=== PATIENT | male | born 1985 | race Caucasian/White ===

== ENCOUNTER 2017-03-16 20:23 | Emergency (ER) | payer OTHER ==
[~2017-03-16] VITALS: Ht 177.8 cm; Wt 87.6 kg
[~2017-03-16 20:23] MED LIST: ALBU1AER9 INH; MIRT30TA2 PO; OMEP40CA PO
[2017-03-16 20:25] VITALS: TEMP 36.7; Ht 177.8 cm; Wt 87.6 kg
--- NOTE | 2017-03-16 21:30 | EMERGENCY ROOM VISIT NOTE ---
History Report prepared by Deanna: John Perez Under the Supervision of: Dr. Luis Munoz M.D. First contact with patient: 21:24 Chief Complaint: URINARY SYMPTOMS Stated Complaint: PEEING BLOOD Nursing Triage Summary: urinating blood. History of Present Illness The patient is a 32 year old male who presents to the Emergency Room with complaints of intermittent hematuria that started last night. The patient reports that he noticed some blood in his urine last night, but denies noticing any previous symptoms. He reports that whenever he urinates, he experiences pain. The patient denies any abdominal pain. Source of History: patient Onset: last night Position: other (global) Quality: other (blood in urine) Timing: intermittent Associated Symptoms: No abdominal pain Review of Systems All systems have been listed, reviewed, and are negative other than those previously mentioned. Please see Additional Medical History Sheet. Past Medical & Surgical Medical Problems: (1) Asthma (2) Back pain (3) Back pain (4) Bipolar disorder (5) Gastroesophageal reflux disease (6) [id number] (7) [id number] (8) learning disorder (9) Low back pain (10) Lumbar disc disease Surgical Problems: (1) Hernia repair Family History No significant family history Social History Smoking Status: Never Smoker Alcohol Use: none Drug Use: none Marital Status: in relationship Housing Status: lives with family Occupation Status: unemployed Current/Historical Medications Scheduled Escitalopram Oxalate (Escitalopram Oxalate), 20 MG PO QAM Mirtazapine (Remeron), 30 MG PO HS Montelukast Sod (Montelukast Sodium), 10 MG PO QAM Omeprazole (Prilosec), 40 MG PO QAM Scheduled PRN Acetaminophen (Tylenol), 500 MG PO UD PRN for Pain or Fever Albuterol Sulfate (Proair Respiclick), 2 PUFFS INH QID PRN for SOB/Wheezing Allergies Coded Allergies: No Known Allergies (Verified , 02/03/16) Physical Exam Vital Signs Date Time Temp Pulse Resp B/P (MAP) Pulse Ox O2 Delivery O2 Flow Rate FiO2 03/16/17 23:23 59 18 112/86 95 03/16/17 22:35 58 16 132/85 97 Room Air 03/16/17 20:25 36.7 73 18 144/92 96 Room Air Physical Exam GENERAL: Patient awake, alert, oriented x 3. Patient follows commands. Patient does not appear toxic. Patient is adequately hydrated and well- nourished. Patient is in no distress. SKIN: No erythema, pallor, cyanosis or rash HEENT: Normal head, pupils equal, reactive to light and accommodation. LUNGS: Clear to auscultation. No wheezes, no rales, no rhonchi. HEART: No murmurs. No gallops. No rubs ABDOMEN: No masses, no rebound, no hepatomegaly or splenomegaly. : No signs of trauma. Circumcised penis. No swelling. EXTREMITIES: No signs of trauma or infection NEUROLOGIC: Cranial nerves II-XII within normal limits. No gross motor sensory function deficits. Medical Decision & Procedures Laboratory Results 03/16/17 21:50 03/16/17 21:50 Test 03/16/17 21:50 Red Blood Count 4.79 M/uL (4.7-6.1) Mean Corpuscular Volume 84.3 fL (80-100) Mean Corpuscular Hemoglobin 29.6 pg (25-34) Mean Corpuscular Hemoglobin Concent 35.1 g/dl (32-36) RDW Standard Deviation 38.0 fL (36.4-46.3) RDW Coefficient of Variation 12.5 % (11.5-14.5) Mean Platelet Volume 8.7 fL (7.4-10.4) Urine Color YELLOW Urine Appearance CLEAR (CLEAR) Urine pH 7.0 (4.5-7.5) Urine Specific [place] 1.025 (1.000-1.030) Urine Protein NEG (NEG) Urine Glucose (UA) NEG (NEG) Urine Ketones NEG (NEG) Urine Occult Blood NEG (NEG) Urine Nitrite NEG (NEG) Urine Bilirubin NEG (NEG) Urine Urobilinogen NEG (NEG) Urine Leukocyte Esterase NEG (NEG) Anion Gap 5.0 mmol/L (3-11) Est Creatinine Clear Calc Drug Dose 100.5 ml/min Estimated GFR () 103.1 Estimated GFR (Non- 89.0 BUN/Creatinine Ratio 13.0 (10-20) Calcium Level 8.8 mg/dl (8.5-10.1) Laboratory results as stated above per my review. ED Course 2123: Past medical records reviewed. The patient was evaluated in room A11A. A complete history and physical examination was performed. 2258: Upon reevaluation, the patient is resting comfortably. I discussed today' s findings with the patient. He verbalized agreement of the treatment plan. The patient was discharged home. Medical Decision Nurses notes reviewed. Medical history sheet reviewed. Differential diagnosis includes but is not limited to: hematuria, UTI, kidney stone, urethral trauma, urethritis. The patient is asymptomatic but is concerned about the blood. Blood work and urinalysis were obtained. Please see above. The patient has no blood, red or white cells in his urine. CBC and electrolytes were also within normal limits. The patient is a follow-up with his family physician. He does not require any treatment at this time. Medication Reconcilliation Current Medication List: was personally reviewed by me Blood Pressure Screening Patient's blood pressure: Elevated blood pressure Blood pressure disposition: Elevated BP felt to be situational Impression Primary Impression: Symptoms involving urinary system Scribe Attestation The scribe's documentation has been prepared under my direction and personally reviewed by me in its entirety. I confirm that the note above accurately reflects all work, treatment, procedures, and medical decision making performed by me. Departure Information Dispostion Home / Self-Care Referrals Benjy Greene M.D. (PCP) Patient Instructions My [facility] Additional Instructions Follow-up with your family physician. Continue all of your current medications as prescribed.
[2017-03-16] MEDS ORDERED: SNG10 PO (22:01)
[2017-03-16] MEDS ORDERED: ALBU18002 INH (22:01)
[2017-03-16] MEDS ORDERED: MIRT30TA3 PO (22:01)
[2017-03-16] MEDS ORDERED: OMEP40CA41 PO (22:01)
[2017-03-16] MEDS ORDERED: LXP/20 PO (22:01)
[2017-03-16] MEDS ORDERED: ACET-1256 PO (22:01)
[2017-03-16 22:02] LABS: HEMATOCRIT 40.4 % (42-52); MEAN CELL VOLUME 84.3 fL (80-100); MEAN CORPUSCULAR HEMOGLOBIN 29.6 pg (25-34); MEAN CORPUSCULAR HGB CONC 35.1 g/dl (32-36); MEAN PLATELET VOLUME 8.7 fL (7.4-10.4); PLATELET COUNT 205 K/uL (130-400); RED BLOOD COUNT 4.79 M/uL (4.7-6.1); WHITE BLOOD COUNT 7.12 K/uL (4.8-10.8)
[2017-03-16 22:11] LABS: URINE APPEARANCE CLEAR (CLEAR); URINE BILIRUBIN NEG (NEG); URINE COLOR YELLOW; URINE NITRITE NEG (NEG); URINE SPECIFIC GRAVITY 1.025 (1.000-1.030); UROBILINOGEN NEG (NEG); ZZUR CULT IF INDIC CLEAN CATCH NO
[2017-03-16 22:14] LABS: MANUAL MICROSCOPIC REQUIRED? NO; REVIEW REQ? NO
[2017-03-16 22:26] LABS: CALCIUM 8.8 mg/dl (8.5-10.1); CREATININE 1.1 mg/dl (0.60-1.40); POTASSIUM 4.1 mmol/L (3.5-5.1)
[2017-03-16 23:23] VITALS: BP 112/86; PULSE 59; O2SAT 95
== END 2017-03-16 23:52 | disposition home or self-care (01) ==
LOC: C.EDB 20:25 → C.EDA 23:52
DX: R31.9 Hematuria, unspecified (principal); R30.0 Dysuria; J45.909 Unspecified asthma, uncomplicated; F31.9 Bipolar disorder, unspecified; K21.9 Gastro-esophageal reflux disease without esophagitis; M51.86 Other intervertebral disc disorders, lumbar region; F81.9 Developmental disorder of scholastic skills, unspecified

== ENCOUNTER 2017-07-17 18:38 | Emergency (ER) | payer OTHER ==
[~2017-07-17] VITALS: Ht 177.8 cm; Wt 96.0 kg
[2017-07-17 18:50] VITALS: BP 140/84; PULSE 86; TEMP 37; O2SAT 93; Ht 177.8 cm; Wt 96.0 kg
[2017-07-17] MEDS ORDERED: PRED20TA2 PO (19:37)
[2017-07-17] MEDS ORDERED: SNG10 PO (22:01)
[2017-07-17] MEDS ORDERED: LXP/20 PO (22:01)
[2017-07-17] MEDS ORDERED: MIRT30TA3 PO (22:01)
[2017-07-17] MEDS ORDERED: ACET-1256 PO (22:01)
[2017-07-17] MEDS ORDERED: ALBU18002 INH (22:01)
[2017-07-17] MEDS ORDERED: OMEP40CA41 PO (22:01)
--- NOTE | 2017-07-17 22:40 | EMERGENCY ROOM VISIT NOTE ---
ED Visit Note First contact with patient: 19:02 Chief Complaint: Sore throat. History of Present Illness: Mr. Escobedo is a 32-year-old white male who ambulates into the ED accompanied by male friend complaining of throat pain. Patient reports last evening he noted he had a mild sore throat with no associated symptoms. He reports he went to bed and when he awoke this morning he had the sensation of something stuck in the back of his throat. Since that time this discomfort has been constant. He rates his discomfort 4/10. The discomfort worsens with swallowing. He has not taken any medications for his symptoms. He has not identified any alleviating factors related to the symptoms. Associated with his symptoms he reports she has difficulty swallowing. He denies headache, dizziness, lightheadedness, ear pain, upper respiratory tract symptoms, sinus pain/drainage, nasal pain/drainage, fevers, chills, sweats, voice changes, drooling, painful talking, neck pain/stiffness, cough, wheezing, shortness of breath, decreased appetite, nausea/vomiting. Additional history patient does report that he snores a lot and he has never had similar symptoms. Review of Systems: As noted above in history of present illness. 8 body systems were reviewed and found to be negative as noted above. Past Medical History: Asthma, chronic back pain, bipolar disorder, gastric reflux, unspecified learning disorder, status post hernia repair. Current Medications: Medications Dose Route/Sig Max Daily Dose Days Date Category Dose Instructions Tylenol (Acetaminophen) 500 Mg Tab 500 Mg PO UD PRN 03/16/17 Reported TAKE PER PACKAGE DIRECTIONS Proair Respiclick (Albuterol Sulfate) 108 Mcg/Act Aer 2 Puffs INH QID PRN 03/16/17 Reported Prilosec (Omeprazole) 40 Mg Cap 40 Mg PO QAM 03/16/17 Reported TAKE THIS MEDICATION ONCE DAILY ONE HOUR BEFORE FIRST MEAL OF THE DAY Escitalopram Oxalate 20 Mg Tab 20 Mg PO QAM 03/16/17 Reported Remeron (Mirtazapine) 30 Mg Tab 30 Mg PO HS 03/16/17 Reported Montelukast Sodium (Montelukast Sod) 10 Mg Tab 10 Mg PO QAM 03/16/17 Reported Allergies to Medications: Patient denies. Social History: Patient is currently employed; he feels safe in his home environment; he denies tobacco and alcohol use. Physical Examination: Vital Signs: Date Time Temp Pulse Resp B/P (MAP) Pulse Ox O2 Delivery O2 Flow Rate FiO2 07/17/17 18:50 37.0 86 18 140/84 93 Room Air GENERAL: 32-year-old male in mild distress due to symptoms, nontoxic-appearing, afebrile and hemodynamically stable. NEUROLOGICAL: Awake, alert and oriented to person, place and time. Answering questions appropriately and following commands. Normal gait. Good hand eye coordination. SKIN: Warm, dry and pink. No soft tissue eruptions or trauma noted. HEENT: Atraumatic and normocephalic. No tenderness or erythema over the frontal or maxillary sinuses. Tympanic membranes are not erythematous or edematous. PERRLA. Sclera white and conjunctiva pink without drainage. No drainage from naris without audible congestion. Airway is patent. Oral cavity moist and pink. Uvula is moderately erythematous and edematous. Posterior pharyngeal area is minimally erythematous but not edematous edematous. No tonsillar hypertrophy or exudates. Speech normal. No lymphadenopathy. Trachea midline. No jugular venous distention. No laryngeal tenderness. No auditory or auscultatory stridor. BACK: No tenderness over the bony spine. No nuchal rigidity or meningismus. ED Course: Patient is assessed as noted above. Patient's medication list was reviewed. Rapid Strep Screen: Negative. Culture pending. Patient was given 60 mg of prednisone by mouth for inflammation of the uvula. Patient was educated about today's findings and instructed on his treatment plan ; he verbalized understanding and agreement with this plan. Clinical Impression: Acute uvulitis. Disposition: Patient discharged to home in stable condition accompanied by a male friend; prior to departure he was reassessed and subjectively reported he was feeling the same. Plan: Patient was prescribed prednisone 60 mg once a day for 4 more days. Patient was encouraged to use or alternate ibuprofen and acetaminophen as needed for pain and/or fevers. Patient was encouraged to use a liquid and mechanical soft diet until resolution of throat discomfort. Patient was encouraged to stay well-hydrated with increased clear fluids. Patient is encouraged to follow-up with PCP for recheck if no better in 2-3 days. Patient was encouraged to return the ED for worsening pain, uncontrolled fevers , inability to swallow or any new/concerning symptoms.
== END 2017-07-17 19:54 | disposition home or self-care (01) ==
LOC: C.EDB 18:41 → C.EDD 19:54
DX: K12.2 Cellulitis and abscess of mouth (principal); J45.909 Unspecified asthma, uncomplicated; F31.9 Bipolar disorder, unspecified; K21.9 Gastro-esophageal reflux disease without esophagitis

== ENCOUNTER 2017-10-28 04:36 | Emergency (ER) | payer OTHER ==
[~2017-10-28] VITALS: Ht 177.8 cm; Wt 90.7 kg
[~2017-10-28 04:36] MED LIST changes: +ACET-1256 PO; +ALBU18002 INH; -ALBU1AER9 INH; +LXP/20 PO; -MIRT30TA2 PO; +MIRT30TA3 PO; -OMEP40CA PO; +OMEP40CA41 PO; +PRED20TA2 PO; +SNG10 PO
[2017-10-28 04:38] VITALS: TEMP 36.5; Ht 177.8 cm; Wt 90.7 kg
[2017-10-28] MEDS ORDERED: ALBUT/IPRATROP 3MG/0.5MG NEB 3 ML VIAL INH ONE (04:45)
[2017-10-28] MEDS ORDERED: BUSP-8 PO (05:20)
[2017-10-28] MEDS ORDERED: PRED20TA2 PO (05:43)
[2017-10-28 05:49] VITALS: BP 129/84; PULSE 77; O2SAT 99
--- NOTE | 2017-10-28 06:39 | DIAGNOSTIC IMAGING REPORT ---
CHEST 2 VIEWS ROUTINE CLINICAL HISTORY: SOB. Asthma hx COMPARISON STUDY: Chest radiograph November 17, 2015. FINDINGS: Lung volumes are normal. Lungs are clear. No pneumothorax or pleural effusion is noted. There is no evidence for pneumomediastinum. Cardiac size is normal. Mediastinal contours are normal. Appearance of the chest is unchanged. IMPRESSION: No acute cardiopulmonary findings. Electronically signed by: Ralf Jackson M.D. 10/28/2017 6:38 AM Dictated Date/Time: 10/28/2017 6:37 AM
--- NOTE | 2017-10-28 07:55 | EMERGENCY ROOM VISIT NOTE ---
History First contact with patient: 04:38 Chief Complaint: SHORTNESS OF BREATH Stated Complaint: SHORT OF BREATH Nursing Triage Summary: Pt c/o increased shortness of breath and chest tightness from allergies, medications and inhalers taken without relief at home. History of Present Illness The patient is a 32 year old male who presents to the Emergency Room with complaints of shortness of breath and chest tightness that began worsening at home tonight. The patient has a history of asthma and this is been ongoing for the past few days. His inhaler has been improving his symptoms at home, however tonight he did not get any relief. The patient states that his allergies and asthma are always worse this time of year, and he has had symptoms like this in the past. He is not having distinct pain, fevers, or chills. He contacted EMS and was given a DuoNeb and 125 mg Solu-Medrol prehospital. He states that he feels remarkably better after this. He rates his current discomfort as 0/10, however before treatment it was a 9/10. Review of Systems More than 10 systems were reviewed and otherwise negative with the exception of history of present illness. Past Medical/Surgical History Medical Problems: (1) Asthma (2) Back pain (3) Back pain (4) Bipolar disorder (5) Gastroesophageal reflux disease (6) [id number] (7) [id number] (8) learning disorder (9) Low back pain (10) Lumbar disc disease Surgical Problems: (1) Hernia repair Family History No significant family history Social History Smoking Status: Former Smoker Alcohol Use: none Drug Use: none Marital Status: in relationship Housing Status: lives with family Occupation Status: unemployed Current/Historical Medications Scheduled Buspirone Hcl (Buspirone Hcl), 15 MG PO DIRECTED Escitalopram Oxalate (Escitalopram Oxalate), 20 MG PO QAM Mirtazapine (Remeron), 30 MG PO HS Montelukast Sod (Montelukast Sodium), 10 MG PO QAM Omeprazole (Prilosec), 40 MG PO QAM Prednisone (Prednisone Tab), 2 TAB PO DAILY Scheduled PRN Acetaminophen (Tylenol), 500 MG PO UD PRN for Pain or Fever Albuterol Sulfate (Proair Respiclick), 2 PUFFS INH QID PRN for SOB/Wheezing Physical Exam Vital Signs Date Time Temp Pulse Resp B/P (MAP) Pulse Ox O2 Delivery O2 Flow Rate FiO2 10/28/17 05:49 77 18 129/84 99 10/28/17 04:41 78 10/28/17 04:38 36.5 77 18 127/92 98 Room Air Physical Exam VITALS: Vitals are noted on the nurse's note and reviewed by myself. Vital signs stable. GENERAL: Well-developed, well-nourished, white male, who is in no acute distress and resting comfortably. Patient is cooperative with the examination. HEAD: Normocephalic atraumatic. EARS: External ear normal. External auditory canals clear, tympanic membranes pearly arana without erythema or effusion bilaterally. EYES: Pupils equal round and reactive to light and accommodation. Conjunctivae without injection, sclerae without icterus. Extraocular movements intact. NOSE: Patent, turbinates without inflammation or discharge. MOUTH: Mucous membranes moist. Tonsils are not enlarged. Pharynx without erythema, blood, or exudate. Uvula midline. Airway patent. NECK: Supple without nuchal rigidity. No lymphadenopathy. No thyromegaly. Cervical spine is nontender. HEART: Regular rate and rhythm without murmurs gallops or rubs. LUNGS: Clear to auscultation bilaterally without wheezes, rales or rhonchi. No retractions or accessory muscle use. Medical Decision & Procedures ER Provider Diagnostic Interpretation: CHEST 2 VIEWS ROUTINE CLINICAL HISTORY: SOB. Asthma hx COMPARISON STUDY: Chest radiograph November 17, 2015. FINDINGS: Lung volumes are normal. Lungs are clear. No pneumothorax or pleural effusion is noted. There is no evidence for pneumomediastinum. Cardiac size is normal. Mediastinal contours are normal. Appearance of the chest is unchanged. IMPRESSION: No acute cardiopulmonary findings. Medications Administered Medications (Trade) Dose Ordered Sig/John Route Start Time Stop Time Status Last Admin Dose Admin Albuterol/ Ipratropium (Duoneb) 3 ml NOW ONCE INH 10/28/17 04:45 10/28/17 04:46 DC 10/28/17 04:51 3 ML ED Course Physical exam and history were performed. Nursing notes, EMR, and Medication List were personally reviewed. Patient appears to have a history of asthma that was exacerbated earlier. The patient was given a DuoNeb and Solu-Medrol prehospital. On examination he states that he feels much better. I did perform a chest x-ray which does not show acute findings per my and radiology interpretation. The patient was given a second DuoNeb here in the department, and repeat exam continued to be benign. Patient appears well for discharge home. He does have inhalers that he may continue. I will give him a short course of prednisone. He is to follow with his primary care physician for further management. He was otherwise invited back to the ER with any new, worsening, or concerning symptoms. The chart was completed utilizing [email or web address] Speech Voice Recognition Software. Grammatical errors, random word insertions, pronoun errors, and incomplete sentences are an occasional consequence of this system due to software limitations, ambient noise, and hardware issues. Any formal questions or concerns about the content, text, or information contained within the body of this dictation should be directly addressed to the provider for clarification. . Medical Decision Differential diagnosis: Etiologies such as infections, reactive airway disease, pneumonia, pneumothorax , COPD, CHF, cardiac ischemia, pulmonary embolism, musculoskeletal, gastrointestinal, as well as others were entertained. Impression Primary Impression: Asthma exacerbation Departure Information Dispostion Home / Self-Care Condition GOOD Prescriptions Prednisone (Prednisone Tab) 20 Mg Tab 2 TAB PO DAILY for 5 Days, #10 TAB Prov: Bam Torres PA-C 10/28/17 Referrals Benjy Greene M.D. (PCP) Forms HOME CARE DOCUMENTATION FORM, IMPORTANT VISIT INFORMATION Patient Instructions My [facility] Additional Instructions You were seen and evaluated today on an emergency basis only. This is not a substitute for, or an effort to provide, complete comprehensive medical care. It is not possible to recognize and treat all injuries or illnesses in a single emergency department visit. For this reason it is recommended that you followup with your primary care physician in the next 2-3 days for recheck. Continue your inhaler at home. Take prednisone 40 mg daily for the next 5 days. You are welcome to return to the emergency department anytime with new, worsening, or concerning symptoms.
== END 2017-10-28 05:50 | disposition home or self-care (01) ==
LOC: EDBD 04:36 → C.EDA 04:37
DX: J45.901 Unspecified asthma with (acute) exacerbation (principal); F31.9 Bipolar disorder, unspecified; K21.9 Gastro-esophageal reflux disease without esophagitis; F81.9 Developmental disorder of scholastic skills, unspecified; Z87.891 Personal history of nicotine dependence; Z79.899 Other long term (current) drug therapy

== ENCOUNTER 2018-12-24 18:50 | Inpatient (IN) ==
[2018-12-24 19:28] LABS: Basophils # (auto) 0.03 K/uL (0-0.2); Basophils % (auto) 0.3 %; Eosinophils # (auto) 0.02 K/uL (0-0.5); Eosinophils % (auto) 0.2 %; Hematocrit (blood only) 40.3 % (42-52); Hemoglobin 14.2 g/dL (14.0-18.0); Immature Granulocytes # (auto) 0.03 K/uL (0.00-0.02); Immature Granulocytes % (auto) 0.3 %; Lymphocytes # (auto) 1.03 K/uL (1.2-3.4); Lymphocytes % (auto) 8.6 %; Mean Corpuscular Hgb Conc 35.2 g/dL (32-36); Mean Corpuscular Volume 82.2 fL (80-100); Mean Platelet Volume 8.8 fL (7.4-10.4); Monocytes # (auto) 0.49 K/uL (0.11-0.59); Monocytes % (auto) 4.1 %; Neutrophils # (auto) 10.32 K/uL (1.4-6.5); Neutrophils % (auto) 86.5 %; Platelet Count 203 K/uL (130-400); RDW Coefficient of Variation 12.3 % (11.5-14.5); RDW Standard Deviation 36.6 fL (36.4-46.3); White Blood Count 11.92 K/uL (4.8-10.8)
[2018-12-24 19:50] LABS: Acetaminophen < 2 ug/ml (10-30); Albumin Level 4.2 gm/dl (3.4-5.0); BUN Creatinine Ratio 12.6 (10-20); Calcium 9.4 mg/dl (8.5-10.1); Creatinine Clr Calc Pharmacy 82.2 ml/min; Est GFR (African American) 93.1; Est GFR (Non-African American) 80.3; Potassium 3.6 mmol/L (3.5-5.1)
[2018-12-24 19:55] LABS: Salicylate < 1.7 mg/dl (2.8-20)
[2018-12-24 20:00] LABS: Albumin Globulin Ratio 1.2 (0.9-2); Bilirubin,Total 0.6 mg/dl (0.2-1); Globulin 3.5 gm/dl (2.5-4.0); Total Protein 7.7 gm/dl (6.4-8.2)
[2018-12-24 20:18] LABS: Appearance Urine Cloudy (Clear); Bacteria Urine Automated Negative (Negative); Bilirubin Urine Negative (Negative); Blood Urine Negative (Negative); Color Urine Dark Yellow; Epithelial Cell Urine Auto >30 /lpf (0-5); Glucose Urine UA Negative (Negative); Ketones Urine 1+ (Negative); Leukocyte Esterase Urine Negative (Negative); Nitrite Urine Negative (Negative); RBC Urine Automated 0-4 /hpf (0-4); Specific Gravity Urine 1.033 (1.000-1.030); Urobilinogen Urine Negative (Negative); pH Urine 8.5 (4.5-7.5)
[2018-12-24 20:34] LABS: Amphetamines+Metham, Urine Neg (Neg); Barbiturates, Urine Neg (Neg); Benzodiazepine, Urine Neg (Neg); Cocaine, Urine Neg (Neg); MDMA (Ecstacy), Urine Neg (Neg); Methadone, Urine Neg (Neg); Opiate, Urine Neg (Neg); Phencyclidine, Urine Neg (Neg)
[2018-12-24 20:35] LABS: Protein Urine 1+ (Negative)
[2018-12-24 20:45] LABS: Mucus Urine Present (None Prsent); Renal Epithelial Cells Urine 0-5 /lpf (0-5)
--- NOTE | 2018-12-24 21:03 | Emergency Department Note ---
Entered by Paulette Vaughn acting as a scribe for Clark David MD History of Present Illness General Chief complaint: Mental Health Evaluation Stated complaint: SUICIDAL THOUGHTS Time Seen by Provider: 12/24/18 19:02 Source: patient History of Present Illness Provider complaint: Mental Health Evaluation Onset (ago): week(s) 2 Location: head (mental health evaluation ) Pain Consistency: + constant Maximum Pain Intensity: 0 Quality: + constant Associated symptoms: + loss of appetite and + other (Positive: Depression, sa dness, suicidal ideation,normal bowel movements. Negative: abdominal pain) The patient is a 33 white male w/ PMHx chest pain, back pain, mood disorder, depression, and suicidal ideation who presents to the ED for a mental health evaluation. The patient reports he has been having thoughts about killing himself for 2 weeks. He notes he is still on his medications for his bipolar disorder. The patient reports he thinks his medications stopped working. He states there are no recent changes to his medications. The patient notes he is feeling depressed and sad along with loss of appetite. He reports he has been sleeping well. The patient states he does not have thoughts about hurting other people. He denies seeing or hearing things. The patient repots he tried to hurt himself in 2005 where he took a knife and cut himself. He notes he was admitted as an inpatient in 2011 for medical breakdown. The patient states he had a plan to hurt himself this morning where he was going to take a knife and cut his wrist. He states he does not have guns or knives at home. He reports he drinks alcohol. The patient states he has normal bowel movement. The patient denies abdominal pain, tobacco use, or drug use. Home Medications Home Medications Medication Instructions Recorded Confirmed Type acetaminophen [Tylenol Extra 1,000 mg PO Q6H PRN 12/24/18 12/24/18 History Strength] albuterol sulfate [ProAir HFA] 2 puff INHALATION QID 12/24/18 12/24/18 History buspirone 15 mg PO BID 12/24/18 12/24/18 History loratadine [Claritin] 10 mg PO DAILY 12/24/18 12/24/18 History mirtazapine [Remeron] 30 mg PO HS 12/24/18 12/24/18 History montelukast [Singulair] 10 mg PO DAILY 12/24/18 12/24/18 History omeprazole 40 mg PO DAILY 12/24/18 12/24/18 History sertraline [Zoloft] 200 mg PO DAILY 12/24/18 12/24/18 History Allergies Allergy/AdvReac Type Severity Reaction Status Date / Time No Known Allergies Allergy Unknown Verified 12/24/18 21:35 Past Med/Surg History Medical History [id number] (Resolved) [id number] (Resolved) Depression (Acute) Suicidal ideation (Acute) GERD (gastroesophageal reflux disease) (Chronic) Sciatica (Chronic) Abrasion of left hand (Resolved) Acute bronchitis (Resolved) Acute exacerbation of chronic low back pain (Resolved) Asthma exacerbation (Resolved) Back pain (Resolved) Back pain (Resolved) Back pain (Resolved) Back pain (Resolved) Back strain (Resolved) Chest pain (Resolved) Chest pain (Resolved) Chest wall pain (Resolved) Closed head injury (Resolved) Mood disorder (Resolved) Nausea (Resolved) Vomiting (Resolved) Asthma Family History Family/Other Bipolar disorder Mother Depression sees therapist Other No known problems Social History Preferred Language: Swazi Communication Ability: Effective Ice Puller Required: No Beliefs That Will Affect Care: None marital status: Single Current Living Situation: Parent current occupational status: employed Feels Safe at Home: Yes Smoking Status: Never smoker Hx Alcohol Use: Yes (few times a year, mild usage ) Alcohol Intake Frequency: Holidays/Special Occasions Hx Substance Use: No Physical Exam Vital Signs Vital Signs - 24 hr 12/24/18 18:56 12/24/18 20:32 12/24/18 22:18 Temperature 36.4 C L Temperature Source Oral Sepsis Recent Fever Within 48 Hours No Sepsis Action Taken by Nursing No Action Required Pulse Rate 78 52 L Pulse Rate [Apical] 62 Pulse Rhythm Regular Pulse Strength Normal Respiratory Rate 20 16 16 Respiratory Effort / Characteristics Non-Labored Spontaneous Non-Labored Spontaneous Respiratory Depth Normal Normal Respiratory Pattern Regular Blood Pressure 142/98 H 133/83 Blood Pressure [Left Arm] 120/83 Blood Pressure Mean 112 Blood Pressure Mean [Left Arm] 95 Blood Pressure Position Sitting Pulse Oximetry 97 97 99 Oxygen Delivery Method Room Air Room Air Room Air GENERAL: Well appearing, well nourished, NAD, non-toxic. EYE EXAM: Normal conjunctiva. PERRL, no anisocoria and EOM's grossly intact w/o pain. OROPHARYNX: Moist mucous membranes. Grossly normal dentition. NECK: Supple, no nuchal rigidity, no adenopathy, non-tender. No signs of meningismus. LUNGS: Clear to auscultation. Normal chest wall mechanics. HEART: NSR, no MRG. ABDOMEN: Abdomen soft, non-tender, normo-active bowel sounds, no masses, no rebound or guarding. BACK: No CVA TTP. SKIN: No rashes and no bruising. UPPER EXTREMITIES: Upper extremities are grossly normal. LOWER EXTREMITIES: No pitting edema. No calf pain. NEURO EXAM: A&O x3, cranial nerves II-XII grossly intact, normal speech, moves all 4 extremities on command w/o issue. PSYCH: Tearful, depressed mood, positive SI, no HI or AVH Course 1922: The patient was evaluated in room B6. A complete history and physical exam was performed. 2123: The patient is signed out to Dr. Drake at change of shift. See her note for more information. Administered Medications Albuterol (Ventolin Hfa) 2 puffs INH QID PRN PRN Reason: Shortness Of Breath Stop: 01/23/19 22:34 Last Admin: 12/25/18 10:19 Dose: 2 puffs Documented by: [id number] Buspirone HCl (Buspar) 22.5 mg PO [id number] [facility] Stop: 01/24/19 16:59 Last Admin: 12/25/18 17:14 Dose: 22.5 mg Documented by: [id number] Hydroxyzine HCl (Vistaril) 25 mg PO Q4H PRN PRN Reason: Anxiety Stop: 01/23/19 22:24 Last Admin: 12/25/18 12:52 Dose: 25 mg Documented by: [id number] Loratadine (Claritin) 10 mg PO QAM [facility] Stop: 01/24/19 08:59 Last Admin: 12/25/18 10:16 Dose: 10 mg Documented by: [id number] Pantoprazole Sodium (Protonix) 40 mg PO DAILY [facility] Stop: 01/24/19 09:29 Last Admin: 12/25/18 10:16 Dose: 40 mg Documented by: [id number] Sertraline HCl (Zoloft) 200 mg PO QAM [facility] Stop: 01/24/19 08:59 Last Admin: 12/25/18 10:16 Dose: 200 mg Documented by: [id number] Discontinued Medications Buspirone HCl (Buspar) 15 mg PO BID [facility] Stop: 01/24/19 08:59 Last Admin: 12/25/18 10:16 Dose: 15 mg Documented by: [id number] Medical Decision Making Differential Diagnosis The patient is a 33 white male w/ PMHx chest pain, back pain, mood disorder, depression, and suicidal ideation who presents to the ED for a mental health evaluation. Differential diagnosis: Etiologies such as psychiatric disorder, infection, hypoglycemia, electrolyte abnormalities, cardiac sources, intracerebral event, toxicological process, neurologic disorder, as well as others were entertained. Medical Records Attestation: I reviewed the patient's medical records. Home Medications Current Medication List: was personally reviewed by me Laboratory Data Attestation: I reviewed the patient's lab results. Result diagrams: 12/24/18 19:11 12/24/18 19:11 Lab Results 12/24/18 12/24/18 12/24/18 Range/Units 19:11 19:11 19:11 WBC 11.92 H (4.8-10.8) K/uL RBC 4.90 (4.7-6.1) M/uL Hgb 14.2 (14.0-18.0) g/dL Hct 40.3 L (42-52) % MCV 82.2 (80-100) fL MCH 29.0 (25-34) pg MCHC 35.2 (32-36) g/dL RDW Std Deviation 36.6 (36.4-46.3) fL RDW Coeff of Gi 12.3 (11.5-14.5) % Plt Count 203 (130-400) K/uL MPV 8.8 (7.4-10.4) fL Immature Gran % (Auto) 0.3 % Neut % (Auto) 86.5 % Lymph % (Auto) 8.6 % [place] % (Auto) 4.1 % Eos % (Auto) 0.2 % Baso % (Auto) 0.3 % Immature Gran # (Auto) 0.03 H (0.00-0.02) K/uL Neut # (Auto) 10.32 H (1.4-6.5) K/uL Lymph # (Auto) 1.03 L (1.2-3.4) K/uL [place] # (Auto) 0.49 (0.11-0.59) K/uL Eos # (Auto) 0.02 (0-0.5) K/uL Baso # (Auto) 0.03 (0-0.2) K/uL Sodium 139 (136-145) mmol/L Potassium 3.6 (3.5-5.1) mmol/L Chloride 107 (98-107) mmol/L Carbon Dioxide 25 (21-32) mmol/L Anion Gap 7.0 (3-11) BUN 15 (7-18) mg/dl Creatinine 1.19 (0.6-1.4) mg/dl Est Cr Clr Drug Dosing 82.2 ml/min Est GFR ( Amer) 93.1 Est GFR (Non-Af Amer) 80.3 BUN/Creatinine Ratio 12.6 (10-20) Glucose 97 (70-99) mg/dl Calcium 9.4 (8.5-10.1) mg/dl Total Bilirubin 0.6 (0.2-1) mg/dl AST 15 (15-37) U/L ALT 28 (12-78) U/L Alkaline Phosphatase 72 (45-117) U/L Total Protein 7.7 (6.4-8.2) gm/dl Albumin 4.2 (3.4-5.0) gm/dl Globulin 3.5 (2.5-4.0) gm/dl Albumin/Globulin Ratio 1.2 (0.9-2) TSH 1.150 (0.300-4.500) uIu/ml Urine Color Urine Appearance (Clear) Urine pH (4.5-7.5) Ur Specific [place] (1.000-1.030) Urine Protein (Negative) Urine Glucose (UA) (Negative) Urine Ketones (Negative) Urine Blood (Negative) Urine Nitrite (Negative) Urine Bilirubin (Negative) Urine Urobilinogen (Negative) Ur Leukocyte Esterase (Negative) Urine WBC (Auto) (0-5) /hpf Urine RBC (Auto) (0-4) /hpf U Hyaline Cast (Auto) (0-5) /lpf U Epithel Cells (Auto) (0-5) /lpf Urine Bacteria (Auto) (Negative) Ur Renal Epithelial Cell (0-5) /lpf Urine Mucus (None Prsent) Salicylates < 1.7 L (2.8-20) mg/dl Urine Opiates Screen (Neg) Ur Methadone, Qual (Neg) Acetaminophen < 2 L (10-30) ug/ml Urine Barbiturates (Neg) Ur Phencyclidine (PCP) (Neg) U Amphetamin/Meth Scrn (Neg) MDMA (Ecstasy) Screen (Neg) U Benzodiazepines Scrn (Neg) Ur Cocaine Metabolite (Neg) U Marijuana (THC) Screen (Neg) Ethyl Alcohol mg/dL (0-3) mg/dl 12/24/18 12/24/18 12/24/18 Range/Units 19:11 20:00 20:00 WBC (4.8-10.8) K/uL RBC (4.7-6.1) M/uL Hgb (14.0-18.0) g/dL Hct (42-52) % MCV (80-100) fL MCH (25-34) pg MCHC (32-36) g/dL RDW Std Deviation (36.4-46.3) fL RDW Coeff of Gi (11.5-14.5) % Plt Count (130-400) K/uL MPV (7.4-10.4) fL Immature Gran % (Auto) % Neut % (Auto) % Lymph % (Auto) % [place] % (Auto) % Eos % (Auto) % Baso % (Auto) % Immature Gran # (Auto) (0.00-0.02) K/uL Neut # (Auto) (1.4-6.5) K/uL Lymph # (Auto) (1.2-3.4) K/uL [place] # (Auto) (0.11-0.59) K/uL Eos # (Auto) (0-0.5) K/uL Baso # (Auto) (0-0.2) K/uL Sodium (136-145) mmol/L Potassium (3.5-5.1) mmol/L Chloride (98-107) mmol/L Carbon Dioxide (21-32) mmol/L Anion Gap (3-11) BUN (7-18) mg/dl Creatinine (0.6-1.4) mg/dl Est Cr Clr Drug Dosing ml/min Est GFR ( Amer) Est GFR (Non-Af Amer) BUN/Creatinine Ratio (10-20) Glucose (70-99) mg/dl Calcium (8.5-10.1) mg/dl Total Bilirubin (0.2-1) mg/dl AST (15-37) U/L ALT (12-78) U/L Alkaline Phosphatase (45-117) U/L Total Protein (6.4-8.2) gm/dl Albumin (3.4-5.0) gm/dl Globulin (2.5-4.0) gm/dl Albumin/Globulin Ratio (0.9-2) TSH (0.300-4.500) uIu/ml Urine Color Dark Yellow Urine Appearance Cloudy A (Clear) Urine pH 8.5 H (4.5-7.5) Ur Specific [place] 1.033 H (1.000-1.030) Urine Protein 1+ H (Negative) Urine Glucose (UA) Negative (Negative) Urine Ketones 1+ H (Negative) Urine Blood Negative (Negative) Urine Nitrite Negative (Negative) Urine Bilirubin Negative (Negative) Urine Urobilinogen Negative (Negative) Ur Leukocyte Esterase Negative (Negative) Urine WBC (Auto) 1-5 (0-5) /hpf Urine RBC (Auto) 0-4 (0-4) /hpf U Hyaline Cast (Auto) 10-30 H (0-5) /lpf U Epithel Cells (Auto) >30 H (0-5) /lpf Urine Bacteria (Auto) Negative (Negative) Ur Renal Epithelial Cell 0-5 (0-5) /lpf Urine Mucus Present A (None Prsent) Salicylates (2.8-20) mg/dl Urine Opiates Screen Neg (Neg) Ur Methadone, Qual Neg (Neg) Acetaminophen (10-30) ug/ml Urine Barbiturates Neg (Neg) Ur Phencyclidine (PCP) Neg (Neg) U Amphetamin/Meth Scrn Neg (Neg) MDMA (Ecstasy) Screen Neg (Neg) U Benzodiazepines Scrn Neg (Neg) Ur Cocaine Metabolite Neg (Neg) U Marijuana (THC) Screen Neg (Neg) Ethyl Alcohol mg/dL < 3.0 (0-3) mg/dl ECG Data Attestation: I personally reviewed and interpreted this ECG as follows: Indication: other (Mental health evaluation ) Rate (beats per minute): 70 Rhythm: sinus rhythm Findings: + other (Normal intervals and axis); no acute ischemic change Blood Pressure Blood Pressure Findings: Normal blood pressure Blood Pressure Disposition: did not require urgent referral MDM Narrative The patient is a 33 white male w/ PMHx chest pain, back pain, mood disorder, depression, and suicidal ideation who presents to the ED for a mental health evaluation. Patient was seen and evaluated the bedside. The patient did present with what he self described as a "mental breakdown." The patient states he did have a si milar episode in 2011. The patient does admit to suicidal ideation with plan and had a prior attempt back in 2005. Patient did have blood work completed and was deemed medically cleared. The patient was pending referral upstairs prior to acceptance I briefly discussed the patient with evening physician pending acceptance and placement. Impression & Plan Suicidal ideation, Depression Discharge Plan Visit Data *Final* Discharge Date/Time: 12/24/18 22:18 Chief Complaint: Mental Health Evaluation Stated Complaint: SUICIDAL THOUGHTS ED Provider: Clark David Discharge Problem: Suicidal ideation, Depression Patient Disposition: Transfer Behavioral Health Fac Discharge Instructions Interventions: ED Discharge Assessment Last Done: 12/24/18 22:18 The scribe's documentation has been prepared under my direction and personally reviewed by me in its entirety. I confirm that the note above accurately reflects all work, treatment, procedures, and medical decision making performed by me.
[2018-12-24] MEDS ORDERED: ACETAMINOPHEN 325 MG TAB PO PRN (22:25)
[2018-12-24] MEDS ORDERED: BISMUTH SUBSALICYLATE PER ML OMNICELL CHARGE PO PRN (22:25)
[2018-12-24] MEDS ORDERED: ALUMINUM/MAGNESIUM SUSP 30 ML UDC PO PRN (22:25)
[2018-12-24] MEDS ORDERED: SODIUM CHLORIDE 0.65% NA SOLN 45 ML (OCEAN) PRN (22:25)
[2018-12-24] MEDS ORDERED: MAGNESIUM HYDROXIDE SUSP 30 ML UDC PO PRN (22:25)
[2018-12-24] MEDS ORDERED: ALBUTEROL HFA 8 GM INHALER INH PRN (22:35)
[2018-12-25] MEDS ORDERED: NON-FORMULARY MEDICATION PO SCH (09:00)
[2018-12-25] MEDS ORDERED: BusPIRone 15 MG TAB PO SCH (09:00)
[2018-12-25] MEDS ORDERED: PANTOprazole 40 MG TAB PO SCH (09:30)
[2018-12-25] MEDS: LORATADINE 10 MG TAB PO SCH (10:16)
[2018-12-25] MEDS: SERTRALINE HCL 100 MG TABLET PO SCH (10:16)
--- NOTE | 2018-12-25 17:08 | Psychiatric Consultation ---
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 Pt is reported to have been rather controlling in this new relationship. family meeting occurred today with this new gf who indicated desire to be friends only instead of dating. Pt did not clearly report this to machine sign writer despite machine sign writer's assessment occurring after the family meeting and pt reporting feeling better now with minimizing relationship concern stressors. Pt signed 72 hour notice. Aiming for family meeting with parents. Taking Remeron at 30mg lora, Zoloft at 100mg bid and BuSpar 15mg bid. therapy appts had ceased end of 2017 as was doing better then, Depressive sand anxiety symptoms resumed and worsened past few months with above stressors. Plan Admission on unit q15 minute safety checks after review r/b/a raised remeron to 45mg hs to more fully target depressive symptoms and off label to assist with anxiety symptoms raised BuSpar to 12.5mg bid to more fully target anxiety symptoms maintained Zoloft at 100mg bid family meeting with gf occurred today family meeting with parents to be arranged, pt interested coordinate with [facility] at [facility]. Move up next appt with psychiatrist to be shortly after discharge address relationship status/concerns with pt and address pt emotional tensions regarding this individual and group and miluei treatment while inpt pt signed 72 hour notice today, as still assessing safety concerns and clarifying current situation of triggering event and attempting to mitigate risk concerns maintaining admission at this time with possible discharge to occur instead of 302 process if determined to be appropriate for discharge within the 72 hour assessment time period. Inventory Assets Strengths: seeking medication adjustment, open to resuming therapy appts Needs: assistance with resuming therapy appts, addresing safety concerns with acces to guns, addressing relationship status questions and concerns, Risk Factors Assessment Male: Yes Do You Have Access To A Gun?: Yes (father has guns and pt lives with them, states gave up the sims to the safe) Mental Health Diagnoses: Yes Substance Use Disorders: No Previous Attempt: Yes Family History of Suicide: No Previous Psychiatric Hospitalization: Yes Smoker: No Protective Factors Assessment Employed: Yes ([employer]) Psych History Identifying Data 33 yr old mile single living with parents and his 2 sons (6 and 9 years of age) in [place], [place], admitted on a 201 vol commitment for SI with plan to shoot self in context of worsening depression with loss of prior prison relationship and concerns of status of current new relationship. Chief Complaint "I had a meltdown yesterday but feel better now". History of Present Illness Jones is a 33 yr old single male living with his parents and his 2 sons aged 9 and 6 who is admitted on a 201 voluntary admission given SI with plans to shoot himself with reported access to his father's guns. He has h/o major depressive disorder recurrent and anxiety disorder who obtains psychiatric med management from [facility] in [place], [place] with last appt occurring in September and next one scheduled for January. He had been obtaining psychotherapy appts at [facility] but last appointment was approx Apr or May 2018 with pt reporting therapist had indicated that he could cease therapy apps then given how was doing well back then. 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 His significant other other for many year left him for another barbara about 3 months ago and this was quite hard on him and appears to be a main precipitating factor in his depressive symptoms being more present lately. He verbalizes that she has not been wanting things to do with their children, although its unclear if this is as pulled back she actually is in terms of involvement of the children versus with him. Pt has been seeing a different woman during past couple months, who appears to have been staying with them at pt's parents house. However, it appears she is ending things with him. An argument with her lead to his "meltdown" last night and his SI. He indicated nt his assessment that she is wanting to go slow and machine sign writer's understanding was that they were still dating but slowing down a bit. With review of social media marketing manager's assessment, it appears this new gf actually is breaking up with him and came ot the unit today to address this. She reported he has been rather controlling in the relationship including having her facebook messenger on his phone to monitor al her texts through that messenger among other controlling aspects. per social media marketing manager, she is attached to the 2 children and this might be having her still open to maintaining a more friendship relationship with pt while pt wants either a full dating relationship or to cease the relationship. It appears pt has a remote h/o dx of bipolar d/o but it appears that this dx has been change to Major depressive Disorder and anxiety d/o but pt is unable to fully clarify this. Pt denied h/o overt hypomanic or manic episodes or psychotic features. Pt denied substance use concerns. Alcohol usage is limited to social moderate usage a few times a year. last tobacco usage (snuff) was about 5-6 years ago. tried cannabis one time many years ago. Pt appears have limited ability to write/read per staff. denied SI at time of the assessment this afternoon. Endorsed SI with plan to cut self years ago leading to one of his 2 prior admissions and no other para- suicidal behaviors. full medication compliance reported with psychiatric Meds being at same Meds and doses for extended time. These are BuSpar 15mg tab 1 tab am and 1 tab dinner, Remeron 30mg 1 tab Hs, Zoloft 100mg 1 tab twice a day. denied s/e to Meds, although experiences some lightheadedness when first start BuSpar that then resolved. Pt appears to be minimizing relationship situation concerns today and past suicidal history as pt in 2016 is reported to have held loaded gun to hs chin and in 2005 did slit his wrist per notes. low interest, fatigue, loss of appetite, depressed mood, more anxiety, ruminating, and increased anxiety with resumption of panic attacks occurring about 2 times a week with symptoms starting back perhaps September and worsened further in November and December. Past Psychiatric History Previous Psych History: as per HPI. [facility] psych admission in 2005 and again in 2011. med trials included Effexor xr (around 2005) and lamictal and seroquel in 2011 denied any known h/o mood stablizers or atypical antipsychotics Current Psychiatric Diagnosis: Bipolar disorder, Depression, Anxiety Do You Have Access To A Gun?: Yes (father has guns and pt lives with them, states gave up the sims to the safe) Describe Attempts in the Past: 2006 by slitting wrist, 2017 had loaded gun under chin Allergies Allergy/AdvReac Type Severity Reaction Status Date / Time No Known Allergies Allergy Unknown Verified 12/24/18 21:35 Home Medications Home Medications Medication Instructions Recorded Confirmed Type acetaminophen [Tylenol Extra 1,000 mg PO Q6H PRN 12/24/18 12/24/18 History Strength] albuterol sulfate [ProAir HFA] 2 puff INHALATION QID 12/24/18 12/24/18 History buspirone 15 mg PO BID 12/24/18 12/24/18 History loratadine [Claritin] 10 mg PO DAILY 12/24/18 12/24/18 History mirtazapine [Remeron] 30 mg PO HS 12/24/18 12/24/18 History montelukast [Singulair] 10 mg PO DAILY 12/24/18 12/24/18 History omeprazole 40 mg PO DAILY 12/24/18 12/24/18 History sertraline [Zoloft] 200 mg PO DAILY 12/24/18 12/24/18 History Personal History Living Arrangements: Home Living Arrangements Comments: lives with parents and sons (6 and 9 years of age) in [place] Highest Grade Completed: High School Graduate Highest Grade Completed Comment: special [employer], due to a learning disability, Employment Status: [employer] Employed ([employer] started few months ago ) Marital Status: Single Number Of Children: 2 Beliefs That Will Affect Care: None History of Legal Problems: denied Psychological Trauma History Comment: denied, besides 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 of 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 relationship and current new relationship appearing to be ending Patient History Medical History [id number] (Resolved) [id number] (Resolved) Depression (Acute) Suicidal ideation (Acute) GERD (gastroesophageal reflux disease) (Chronic) Sciatica (Chronic) Abrasion of left hand (Resolved) Acute bronchitis (Resolved) Acute exacerbation of chronic low back pain (Resolved) Asthma exacerbation (Resolved) Back pain (Resolved) Back pain (Resolved) Back pain (Resolved) Back pain (Resolved) Back strain (Resolved) Chest pain (Resolved) Chest pain (Resolved) Chest wall pain (Resolved) Closed head injury (Resolved) Mood disorder (Resolved) Nausea (Resolved) Vomiting (Resolved) Asthma Family History Family/Other Bipolar disorder Mother Depression sees therapist Other No known problems Social History Preferred Language: Albanian Communication Ability: Effective Line Repairer Tower Required: No Beliefs That Will Affect Care: None marital status: Single Current Living Situation: Parent current occupational status: employed Feels Safe at Home: Yes Smoking Status: Never smoker Hx Alcohol Use: Yes (few times a year, mild usage ) Alcohol Intake Frequency: Holidays/Special Occasions Hx Substance Use: No Physical Exam Vital Signs (Past 24 Hours): Last Vital Signs Temp 36.5 C 12/25/18 06:43 Pulse 56 L 12/25/18 06:45 Resp 18 12/25/18 06:43 BP 143/100 H 12/25/18 06:45 Pulse Ox 99 12/24/18 22:18 Physical Examination: physical exam from ER by Dr. David and is deemed sufficient and appropriate for purpose of this admission Review of Systems decreased appettie Eyes: no problem reported Ear, Nose, Mouth, Throat: no problem reported asthma with times of cough denied cough today but had some of a cough in recent days Cardiovascular: no chest pain, no lightheadedness and no syncope GERD treated with med, times of diarrhea -worsened when stressed, was worse yesterday as upset Genitourinary (Male): no problem reported back pain tendency Integumentary: no problem reported sciatica Psychiatric: as per Subjective / HPI Endocrine: no problem reported Hematologic / Lymphatic: no problem reported seasonal allergies Results & Data Medications Administered Albuterol (Ventolin Hfa) 2 puffs INH QID PRN PRN Reason: Shortness Of Breath Stop: 01/23/19 22:34 Last Admin: 12/25/18 10:19 Dose: 2 puffs Documented by: [id number] Hydroxyzine HCl (Vistaril) 25 mg PO Q4H PRN PRN Reason: Anxiety Stop: 01/23/19 22:24 Last Admin: 12/25/18 12:52 Dose: 25 mg Documented by: [id number] [facility]ad[facility]) [facility] Stop: 01/24/19 08:59 Last Admin: 12/25/18 10:16 Dose: 10 mg Documented by: [id number] Pantoprazole Sodium (Protonix) 40 mg PO DAILY [facility] Stop: 01/24/19 09:29 Last Admin: 12/25/18 10:16 Dose: 40 mg Documented by: [id number] Sertraline HCl (Zoloft) 200 mg PO QAM [facility] Stop: 01/24/19 08:59 Last Admin: 12/25/18 10:16 Dose: 200 mg Documented by: [id number]
[2018-12-25] MEDS: BusPIRone 15 MG TAB PO SCH (17:14)
[2018-12-25] MEDS ORDERED: MIRTAZAPINE TAB 15 MG TAB PO SCH (21:00)
[2018-12-25] MEDS: MONTELUKAST SODIUM 10 MG TABLET PO SCH ×2 (21:23→21:24)
[2018-12-25] MEDS: MIRTAZAPINE TAB 15 MG TAB PO SCH (21:24)
[2018-12-26] MEDS: LORATADINE 10 MG TAB PO SCH (08:14)
[2018-12-26] MEDS: PANTOprazole 40 MG TAB PO SCH (08:14)
[2018-12-26] MEDS: BusPIRone 15 MG TAB PO SCH ×2 (08:14→18:33)
[2018-12-26] MEDS: SERTRALINE HCL 100 MG TABLET PO SCH (08:15)
--- NOTE | 2018-12-26 19:39 | Psychiatric Progress Note ---
Date of Service December 26, 2018 Impression / Recommendations Impression 33 yr old single male living with parents and his 2 sons (6 and 9 years of age) with recent change of job after losing job in August and finding a new job and recent end of residential relationship in few months ago with being in a new relationship that appears to be ending. Pt is reported to have been rather controlling in this new relationship. family meeting occurred today with this new gf who indicated desire to be friends only instead of dating. Pt did not clearly report this to machine sign writer despite machine sign writer's assessment occurring after the family meeting and pt reporting feeling better now with minimizing relationship concern stressors. Pt signed 72 hour notice. Aiming for family meeting with parents. Taking Remeron at 30mg lora, Zoloft at 100mg bid and BuSpar 15mg bid. therapy appts had ceased end of 2017 as was doing better then, Depressive sand anxiety symptoms resumed and worsened past few months with above stressors. Plan 12/25 Admission on unit q15 minute safety checks after review r/b/a raised remeron to 45mg hs to more fully target depressive symptoms and off label to assist with anxiety symptoms raised BuSpar to 12.5mg bid to more fully target anxiety symptoms maintained Zoloft at 100mg bid family meeting with gf occurred today family meeting with parents to be arranged, pt interested coordinate with [facility] and obtain collateral from parents and [facility] assist with resuming outpt psychotherapy services at [facility]. Move up next appt with psychiatrist to be shortly after discharge address relationship status/concerns with pt and address pt emotional tensions regarding this individual and group and miluei treatment while inpt pt signed 72 hour notice today, as still assessing safety concerns and clarifying current situation of triggering event and attempting to mitigate risk concerns maintaining admission at this time with possible discharge to occur instead of 302 process if determined to be appropriate for discharge within the 72 hour assessment time period. 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 maintained Remeron at 45mg hs raised yesterday and BuSpar at 22.5mg bid raised yesterday, and Zoloft at 100mg bid reviewed aim to move up net psychiatric appt and to resume psychotherapy appts at [facility] Assets Strengths: seeking medication adjustment, open to resuming therapy appts Needs: assistance with resuming therapy appts, addresing safety concerns with acces to guns, addressing relationship status questions and concerns, Risk Factors Assessment Male: Yes Do You Have Access To A Gun?: Yes (father has guns and pt lives with them, states gave up the sims to the safe) Mental Health Diagnoses: Yes Substance Use Disorders: No Previous Attempt: Yes Family History of Suicide: No Previous Psychiatric Hospitalization: Yes Smoker: No Protective Factors Assessment Employed: Yes ([employer]) Interval History Chief Complaint "feel a sense of relief". Review of Systems Sleep Information Total Hours of Sleep: 6.5 Sleep Comments: pt on q-15 minute checks Meal Information Percent Meal Consumed - Breakfast: 0 Percent Meal Consumed - Lunch: 20 Percent Meal Consumed - Dinner: 50 Nutrition Comment: Pt states that he "doesn't have much of an appetite" Subjective Subjective Patient was seen & assessed and interval progress reviewed with nurses and social work pt shared with machine sign writer how was not quite ready to really talk about and to deal with the family meting that occurred with gf when machine sign writer saw him yesterday and was why he did not talk about with machine sign writer during that assessment. He thought about it further and has processed it with staff since. She visited today again and he told her that he wants a full break from her and he indicated in this assessment that he is fine with ending things with her. HE felt she was talking to a barbara behind his back twice and feels that this is not a good relationship for him. He can admit that he can be over controlling although seems to minimize how much of a pattern and how far back these concerns go. He views his controlling behaviors as tied to his being hurt in various relationships. he endorsed having talked about his anger management concerns in the family meeting with parents that occurred today. He denied any SI. He feels a sense of relief about the break up with this new gf and feels being here in the hospital helped this occurred in a more contained and productive manner. He denied s/e to medication changes and he is hopeful and feels good about the higher doses of BuSpar and Remeron. He feels more refreshed now and calmer. He slept well last night and feels that his appetite is improving some. in family meeting guns were reported to be secured. in family meeting it was shared about pt's tendency to have intense anger reactions since childhood and that he can not be good about follow through of responsibility and parents are wanting him to be more independent in his life. He is invested in resuming psychotherapy appts with therapist at [facility]. Physical Exam Vital Signs (Past 24 Hours) Last Vital Signs Temp 36.8 C 12/26/18 06:40 Pulse 63 12/26/18 06:41 Resp 18 12/26/18 06:40 BP 157/99 H 12/26/18 06:41 Pulse Ox 99 12/24/18 22:18 physical exam from ER by Dr. David and is deemed sufficient and appropriate for purpose of this admission Results & Data Current Inpatient Medications Current Inpatient Medications: Current Inpatient Medications Acetaminophen (Tylenol) 650 mg PO Q4H PRN PRN Reason: Headache or Minor Fever Stop: 01/23/19 22:24 Al Hydrox/Mg Hydrox/Simethicone (Maalox) 30 ml PO Q4H PRN PRN Reason: GI Upset Stop: 01/23/19 22:24 Albuterol (Ventolin Hfa) 2 puffs INH QID PRN PRN Reason: Shortness Of Breath Stop: 01/23/19 22:34 Last Admin: 12/25/18 10:19 Dose: 2 puffs Documented by: Bismuth Subsalicylate (Kaopectate) 15 ml PO PRN PRN PRN Reason: Loose Stool Stop: 01/23/19 22:24 Buspirone HCl (Buspar) 22.5 mg PO BID17 [facility] Stop: 01/24/19 16:59 Last Admin: 12/26/18 18:33 Dose: 22.5 mg Documented by: Hydroxyzine HCl (Vistaril) 25 mg PO Q4H PRN PRN Reason: Anxiety Stop: 01/23/19 22:24 Last Admin: 12/25/18 12:52 Dose: 25 mg Documented by: Hydroxyzine HCl (Vistaril) 50 mg PO HSZ PRN PRN Reason: Insomnia Stop: 01/23/19 22:24 Loratadine (Claritin) 10 mg PO QAM [facility] Stop: 01/24/19 08:59 Last Admin: 12/26/18 08:14 Dose: 10 mg Documented by: Magnesium Hydroxide (Milk Of Magnesia) 30 ml PO DAILY PRN PRN Reason: Heartburn Stop: 01/23/19 22:24 Mirtazapine (Remeron) 45 mg PO HS [facility] Stop: 01/24/19 21:59 Last Admin: 12/25/18 21:24 Dose: 45 mg Documented by: Montelukast Sodium (Singulair) 10 mg PO HS [facility] Stop: 01/24/19 20:59 Last Admin: 12/25/18 21:24 Dose: Not Given Documented by: Pantoprazole Sodium (Protonix) 40 mg PO DAILY [facility] Stop: 01/24/19 09:29 Last Admin: 12/26/18 08:14 Dose: 40 mg Documented by: Sertraline [facility] (Zoloft) [facility] Stop: 01/24/19 08:59 Last Admin: 12/26/18 08:15 Dose: 200 mg Documented by: Sodium Chloride ([place] Nasal) 1 - 2 sprays NA PRN PRN PRN Reason: Nasal Dryness/Congestion Stop: 01/23/19 22:24 Mental Health & Subst Abuse Tx Therapist Name of Therapist: None Sugar Mixer Name of Sugar Mixer: shayna Almaraz at [facility] Post Discharge Appointments Primary Care Physician Name Of Family Doctor: Dr. Mackay CPT Code CPT Code 62677 [id number]
[2018-12-26] MEDS: MONTELUKAST SODIUM 10 MG TABLET PO SCH (21:19)
[2018-12-26] MEDS: MIRTAZAPINE TAB 15 MG TAB PO SCH (21:19)
[2018-12-27] MEDS: SERTRALINE HCL 100 MG TABLET PO SCH (08:06)
[2018-12-27] MEDS: BusPIRone 15 MG TAB PO SCH (08:06)
[2018-12-27] MEDS: PANTOprazole 40 MG TAB PO SCH (08:08)
[2018-12-27] MEDS: LORATADINE 10 MG TAB PO SCH (08:08)
--- NOTE | 2018-12-27 11:23 | Discharge Summary ---
Date of Service December 27, 2018 History of Present Illness Jones is a 33 yr old single male living with his parents and his 2 sons aged 9 and 6 who is admitted on a 201 voluntary admission given SI with plans to shoot himself with reported access to his father's guns. He has h/o major depressive disorder recurrent and anxiety disorder who obtains psychiatric med management from [facility] in [place], [place] with last appt occurring in September and next one scheduled for January. He had been obtaining psychotherapy appts at [facility] but last appointment was approx Apr or May 2018 with pt reporting therapist had indicated that he could cease therapy apps then given how was doing well back then. 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 His significant other other for many year left him for another barbara about 3 months ago and this was quite hard on him and appears to be a main precipitating factor in his depressive symptoms being more present lately. He verbalizes that she has not been wanting things to do with their children, although its unclear if this is as pulled back she actually is in terms of involvement of the children versus with him. Pt has been seeing a different woman during past couple months, who appears to have been staying with them at pt's parents house. However, it appears she is ending things with him. An argument with her lead to his "meltdown" last night and his SI. He indicated nt his assessment that she is wanting to go slow and investment underwriter's understanding was that they were still dating but slowing down a bit. With review of social media editor's assessment, it appears this new gf actually is breaking up with him and came ot the unit today to address this. She reported he has been rather controlling in the relationship including having her facebook messenger on his phone to monitor al her texts through that messenger among other controlling aspects. per social media editor, she is attached to the 2 children and this might be having her still open to maintaining a more friendship relationship with pt while pt wants either a full dating relationship or to cease the relationship. It appears pt has a remote h/o dx of bipolar d/o but it appears that this dx has been change to Major depressive Disorder and anxiety d/o but pt is unable to fully clarify this. Pt denied h/o overt hypomanic or manic episodes or psychotic features. Pt denied substance use concerns. Alcohol usage is limited to social moderate usage a few times a year. last tobacco usage (snuff) was about 5-6 years ago. tried cannabis one time many years ago. Pt appears have limited ability to write/read per staff. denied SI at time of the assessment this afternoon. Endorsed SI with plan to cut self years ago leading to one of his 2 prior admissions and no other para- suicidal behaviors. full medication compliance reported with psychiatric Meds being at same Meds and doses for extended time. These are BuSpar 15mg tab 1 tab am and 1 tab dinner, Remeron 30mg 1 tab Hs, Zoloft 100mg 1 tab twice a day. denied s/e to Meds, although experiences some lightheadedness when first start BuSpar that then resolved. Pt appears to be minimizing relationship situation concerns today and past suicidal history as pt in 2017 is reported to have held loaded gun to hs chin and in 2005 did slit his wrist per notes. low interest, fatigue, loss of appetite, depressed mood, more anxiety, ruminating, and increased anxiety with resumption of panic attacks occurring about 2 times a week with symptoms starting back perhaps September and worsened further in November and December. Physical Exam Psychiatric Orientation: alert, oriented x 3 and cooperative Apperance: appropriately dressed (in nice, cleat sweater and scrub pants) and appropriately groomed Eye Contact: good eye contact Motor Behavior: steady gait and station and no abnormal motor movements Speech: normal rate/rhythm/volume of speech (some stuttering observed, muffled at times) Affect: euthymic affect Mood: no depressed mood and no anxious mood "A lot better now" Thought Process: goal directed thought process, clear/coherent thought process and + concrete thought process Thought Content: reality based without delusions Suicidal Thoughts: denies suicidal thoughts, denies suicidal plan and denies suicidal intent Homicidal Thoughts: denies homicidal thoughts Hallucinations: no auditory hallucinations and no visual hallucinations Cognition: attention grossly intact and language grossly intact Estimated Intelligence: + below average estimated intelligence Insight: + fair insight Judgement: + fair judgement Vital Signs (Past 24 Hours) Last Vital Signs Temp 36.8 C 12/27/18 06:45 Pulse 67 12/27/18 06:45 Resp 18 12/27/18 06:45 BP 144/89 H 12/27/18 06:45 Pulse Ox 99 12/24/18 22:18 Principal Diagnosis - Depression - Anxiety Psychiatric Data 33-year-old male admitted voluntarily for inpatient psychiatric treatment on 12/24/18 due to worsening depressive symptoms and verbalized SI, with a plan to either cut himself or use a gun. Pt has a history of depression and anxiety and had falling out of care with his psychiatric prescriber since 09/2018. Pt reported a recent stressor of learning that his girlfriend had been speaking to other barbara's behind the patient's back, which was upsetting to him. Pt states they had an argument prior to admission which was upsetting. Pt has 2 sons with a woman he was previously engaged to, who has not been as active in the children's lives. Pt found these stressors overwhelming and presented to the ED for psychiatric treatment. He had previously been admitted on our unit in 2005 and 2011. During the patient's admission, medication adjustments were made to target depression and anxiety. Pt's dose of sertraline remained consistent; but, both his buspirone and mirtazapine were titrated to target anxiety. Pt eventually reached a dose of 22.5mg of buspirone BID and 45mg of mirtazapine. He is reportedly tolerating these adjustments. Pt had verbalized improvement in mood and resolution of SI. He had a family meeting with his ex-girlfriend, allowing them to solidify their plans to take "a break" - which patient sees as a relief. His parents were also involved in meetings, and are agreeable to him returning home and feel comfortable with discharge. Pt was able to participate in group and recreational programming and was supportive of peers. Pt completed a safety plan prior to discharge, which was personally reviewed by this provider. Based on review of patient's case and their current presentation, risk of harm to self or others is no longer perceived to be acute. Management of symptoms on an outpatient basis seems the most appropriate and least restrictive setting. Pt seems appropriate for discharge with recommendation for consistent follow-up with outpatient psychiatric prescriber and therapist, and eventual family caseworker. Pt verbalized understanding of discharge plan reviewed and is agreeable with plan to be discharged home with parents today. Day of Discharge Assessment Patient's case was reviewed and discussed during treatment team. Staff report the patient participated in multiple meetings over the weekend with his girlfriend and his parents. Pt had been denying SI over the weekend and parents report feeling comfortable having the patient return to live with them. Pt is reportedly requesting discharge. Pt was seen today to assess readiness for discharge. Pt states he feels he has been doing well. He admits to having a "mental breakdown" prior to admission, but states his mood is significantly better. Pt denies persistent negative thoughts and states his SI has resolved. He reports feeling a "big weight off my shoulders" after his meeting with his girlfriend, has he states they are planning to "take a break." Pt is future oriented during our conversation, and is excited to return home to his sons and to get back to work. He is able to contract for safety outside of the hospital setting and is able to verbalize a safety plan to this provider. Pt is aware that his aftercare is scheduled at [facility], and he is agreeable with following up as scheduled. Pt is requesting discharge, and states his mother will pick him up when she is done with work today. Pt is denying SI and is future oriented. Aftercare is arranged and patient has support of his parents. He does not seem at this time to be at acute risk of harm to himself, and psychiatric treatment on an outpatient basis seem the most appropriate and least restrictive setting at this time. Pt is agreeable with discharge plan and denies other needs or concerns at this time. ROS: Constitutional: denied Cardiovascular: denied Respiratory: denied Gastrointestinal: denied Neurological: denied Psychiatric: denies symptoms other than stated above Total of at least 10 systems reviewed, pertinent positives as above and in HPI. Transition of Care Transition Of Care Record: was reviewed with the patient Advance Directives Advance Directives Information Provided: Yes Advance Directives: No Mental Health Advance Directive: No Advance Directives on File: No Living Will: No Power of Veterinary Virologist: No Advance Directives Reason:: Declines as Mental Health Visit. Risk Factors Assessment Presenting risk factors reviewed on discharge. Precipitating stressors mitigated by: admission for inpatient psychiatric observation and treatment, appropriate adjustments to medications to target symptoms, attendance of therapeutic treatment groups, development of healthy and effective coping strategies, involvement of outpatient supports, completion of a safety plan,, confirmation of guns and weapons being secured, and education on diagnoses. Pt has demonstrated improvement in condition with regard to improvement in mood, resolution of SI, involvement of parents who are identified supports, and verbalizing relief following ending of his relationship. At this time, patient is requesting discharge and is no longer considered to be at acute risk of harm to himself or others. Pt will be discharged with recommendation for ongoing outpatient psychiatric treatment. Male: Yes Do You Have Access To A Gun?: Yes (father has guns and pt lives with them, states gave up the sims to the safe) Mental Health Diagnoses: Yes Substance Use Disorders: No Previous Attempt: Yes Family History of Suicide: No Previous Psychiatric Hospitalization: Yes Smoker: No Protective Factors Assessment Employed: Yes ([employer]/ [employer]) Tobacco Cessation at Discharge Tobacco Cessation Medication Prescribed at Discharge: Not Applicable/Non-Smoker Total Time Total Time Spent: Greater Than 30 Minutes Total Time Includes: Examination of the patient, Discharge Planning, Medication Reconciliation and Communication with other providers Discharge Data Lab Results 12/24/18 12/24/18 12/24/18 19:11 19:11 19:11 WBC 11.92 H RBC 4.90 Hgb 14.2 Hct 40.3 L MCV 82.2 MCH 29.0 MCHC 35.2 RDW Std Deviation 36.6 RDW Coeff of Gi 12.3 Plt Count 203 MPV 8.8 Immature Gran % (Auto) 0.3 Neut % (Auto) 86.5 Lymph % (Auto) 8.6 Mobile % (Auto) 4.1 Eos % (Auto) 0.2 Baso % (Auto) 0.3 Immature Gran # (Auto) 0.03 H Neut # (Auto) 10.32 H Lymph # (Auto) 1.03 L Mobile # (Auto) 0.49 Eos # (Auto) 0.02 Baso # (Auto) 0.03 Sodium 139 Potassium 3.6 Chloride 107 Carbon Dioxide 25 Anion Gap 7.0 BUN 15 Creatinine 1.19 Est Cr Clr Drug Dosing 82.2 Est GFR ( Amer) 93.1 Est GFR (Non-Af Amer) 80.3 BUN/Creatinine Ratio 12.6 Glucose 97 Calcium 9.4 Total Bilirubin 0.6 AST 15 ALT 28 Alkaline Phosphatase 72 Total Protein 7.7 Albumin 4.2 Globulin 3.5 Albumin/Globulin Ratio 1.2 TSH 1.150 Urine Color Urine Appearance Urine pH Ur Specific [place] Urine Protein Urine Glucose (UA) Urine Ketones Urine Blood Urine Nitrite Urine Bilirubin Urine Urobilinogen Ur Leukocyte Esterase Urine WBC (Auto) Urine RBC (Auto) U Hyaline Cast (Auto) U Epithel Cells (Auto) Urine Bacteria (Auto) Ur Renal Epithelial Cell Urine Mucus Salicylates < 1.7 L Urine Opiates Screen Ur Methadone, Qual Acetaminophen < 2 L Urine Barbiturates Ur Phencyclidine (PCP) U Amphetamin/Meth Scrn MDMA (Ecstasy) Screen U Benzodiazepines Scrn Ur Cocaine Metabolite U Marijuana (THC) Screen Ethyl Alcohol mg/dL 12/24/18 12/24/18 12/24/18 19:11 20:00 20:00 WBC RBC Hgb Hct MCV MCH MCHC RDW Std Deviation RDW Coeff of Gi Plt Count MPV Immature Gran % (Auto) Neut % (Auto) Lymph % (Auto) Mobile % (Auto) Eos % (Auto) Baso % (Auto) Immature Gran # (Auto) Neut # (Auto) Lymph # (Auto) Mobile # (Auto) Eos # (Auto) Baso # (Auto) Sodium Potassium Chloride Carbon Dioxide Anion Gap BUN Creatinine Est Cr Clr Drug Dosing Est GFR ( Amer) Est GFR (Non-Af Amer) BUN/Creatinine Ratio Glucose Calcium Total Bilirubin AST ALT Alkaline Phosphatase Total Protein Albumin Globulin Albumin/Globulin Ratio TSH Urine Color Dark Yellow Urine Appearance Cloudy A Urine pH 8.5 H Ur Specific [place] 1.033 H Urine Protein 1+ H Urine Glucose (UA) Negative Urine Ketones 1+ H Urine Blood Negative Urine Nitrite Negative Urine Bilirubin Negative Urine Urobilinogen Negative Ur Leukocyte Esterase Negative Urine WBC (Auto) 1-5 Urine RBC (Auto) 0-4 U Hyaline Cast (Auto) 10-30 H U Epithel Cells (Auto) >30 H Urine Bacteria (Auto) Negative Ur Renal Epithelial Cell 0-5 Urine Mucus Present A Salicylates Urine Opiates Screen Neg Ur Methadone, Qual Neg Acetaminophen Urine Barbiturates Neg Ur Phencyclidine (PCP) Neg U Amphetamin/Meth Scrn Neg MDMA (Ecstasy) Screen Neg U Benzodiazepines Scrn Neg Ur Cocaine Metabolite Neg U Marijuana (THC) Screen Neg Ethyl Alcohol mg/dL < 3.0 Hospital Course (1) Suicidal ideation: Diagnoses: suicidal ideation, depression, anxiety 12/25 Admission on unit q15 minute safety checks after review r/b/a raised remeron to 45mg hs to more fully target depressive symptoms and off label to assist with anxiety symptoms raised BuSpar to 12.5mg bid to more fully target anxiety symptoms maintained Zoloft at 100mg bid family meeting with gf occurred today family meeting with parents to be arranged, pt interested coordinate with [facility] and obtain collateral from parents and [facility] assist with resuming outpt psychotherapy services at [facility]. Move up next appt with psychiatrist to be shortly after discharge address relationship status/concerns with pt and address pt emotional tensions regarding this individual and group and miluei treatment while inpt pt signed 72 hour notice today, as still assessing safety concerns and clarifying current situation of triggering event and attempting to mitigate risk concerns maintaining admission at this time with possible discharge to occur instead of 302 process if determined to be appropriate for discharge within the 72 hour assessment time period. 12/26 - addressed family meetings addressed his relationship ending and his sense of relief addressed his tendency ot get angry and act out at times and also his controlling reactions and his expectation and fears of being hurt in relationships and how more acutely present lately with end of residential relationship in recent past. maintained Remeron at 45mg hs raised yesterday and BuSpar at 22.5mg bid raised yesterday, and Zoloft at 100mg bid reviewed aim to move up net psychiatric appt and to resume psychotherapy appts at [facility] Psychiatrist Name of Psychiatrist: Dr. Grace Villa [facility] Date of Appointment with Psychiatrist: 01/13/19 Time of Appointment with Psychiatrist: 8am Therapist Name of Therapist: Karthik Villa Therapist's Therapy Appointment Comment: They will call you to scheduled Human Resource Professional Name of Human Resource Professional: shayna Almaraz at [facility]charge Appointments Primary Care Physician Name Of Family Doctor: Twyla Carroll Primary Care Provider Appointment Comment: As needed Smoking Cessation Counseling Tobacco Cessation Medication Prescribed at Discharge: Not Applicable/Non-Smoker Contact Information Discharge Discharge Address: [facility] [address] [place] [address] Discharge Plan Discharge Items Patient Disposition: Home - Self-Care Reason For Visit: BIPOLAR DISORDER Discharge Diagnosis: Depression; Anxiety Condition: Good Discharge Goals: Decrease discomfort, Improve disease control, Improve function, Increase independence, Learn about illness and Therapeutic intervention Activity: Resume your previous activity Non-emergency contact: Primary Care Provider, Psychiatrist, Therapist and Industrial Sales Engineer Call non-emergency contact if: you have any medication questions and your symptoms worsen Follow-up/Referrals: Benjy Greene MD [Primary Care Provider] - Diet: Regular Addtl Provider Instructions: SPECIAL CARE INSTRUCTIONS: 1. Follow through with your scheduled aftercare appointments. If unable to keep an appointment, please call to reschedule. 2. Take your medication only as prescribed. Medication should not be changed or stopped without the approval of your doctor. In the event of worsening symptoms or concerns about side effects, contact your doctor immediately. 3. Utilize new healthy coping skills, anger management skills, and stress management skills learned during your hospitalization. Journal feelings and process them with a support person. Identify stressors or situations that may result in relapse, deterioration or inappropriate behaviors and develop a plan to deal with those issues. 4. If your coping skills are ineffective and you are in crisis, contact your outpatient providers for direction. If unable to reach your providers, please call the CAN HELP LINE AT or go to the closest Emergency Room. 5. Avoid alcohol and un-prescribed drugs. 6. You have been provided with the Mental Health Advance Directives Pamphlet for your review. AFTERCARE APPOINTMENTS: * Please call your insurance company prior to your scheduled appointment to confirm your aftercare providers are covered. Take your insurance information to your appointments. WHO TO CALL AND WHEN: Medical Emergencies: For questions or emergencies related to your hospital stay, please contact the Inpatient Behavioral Health Unit at [phone]. A hide inspector and sorter is on-call 29/12 for the Behavioral Health Unit for emergencies At any time you feel your situation is an emergency, you may also call 911 immediately. Your Doctors Instructions noted above were prepared by provider Ni Pope PA-C. Prescriptions: New hydroxyzine HCl 25 mg Tablet 25 mg PO Q4H PRN (Reason: anxiety) 30 Days Qty: 30 RF: 0 buspirone 15 mg Tablet 22.5 mg PO BID17 30 Days Qty: 45 RF: 0 mirtazapine 45 mg tablet 45 mg PO HS 30 Days Qty: 30 RF: 0 Continued sertraline [Zoloft] 100 mg tablet 200 mg PO DAILY RF: 0 omeprazole 40 mg capsule,delayed release(DR/EC) 40 mg PO DAILY RF: 0 acetaminophen [Tylenol Extra Strength] 500 mg Tablet 1,000 mg PO Q6H PRN (Reason: HEADACHE/PAIN) RF: 0 montelukast [Singulair] 10 mg tablet 10 mg PO DAILY RF: 0 albuterol sulfate [ProAir HFA] 90 mcg/actuation HFA aerosol inhaler 2 puff inhalation QID RF: 0 loratadine [Claritin] 10 mg tablet 10 mg PO DAILY RF: 0 Discontinued mirtazapine [Remeron] 30 mg tablet 30 mg PO HS RF: 0 buspirone 15 mg tablet 15 mg PO BID RF: 0 Stand-Alone Forms: [facility] Discharge Orders: Discharge Order (Routine); Ordered 12/27/18 Ordered By: Ni Pope Admission Data Admit Date/Time: 12/24/18 22:25 Attending Provider: Hudson Astorga I Admit Provider: Hudson Astorga I Primary Care Provider: Benjy Greene Service: Psychiatry Other Interventions: Discharge Summary Assessment (RN) Last Done: 12/27/18 11:49 PSY Interdisciplinary Discharge Planning Last Done: 12/27/18 11:30 Pending Studies at Discharge: No DC Date/Time DO NOT enter until pt leaves facility: 12/27/18 13:46
--- NOTE | 2019-01-01 07:10 | Emergency Department Note ---
ED Visit Note Received patient in signout. History and physical verified by me. Patient has been accepted to [facility] .
== END 2018-12-27 13:46 | disposition home or self-care (01) | DRG 880 ==
LOC: ED 18:50 → 3S 22:18